=== PATIENT | male | born 1980 | race Caucasian/White ===

== ENCOUNTER 2017-05-23 05:42 | Emergency (ER) | payer OTHER ==
[~2017-05-23] VITALS: Ht 185.4 cm; Wt 95.3 kg
[~2017-05-23 05:42] MED LIST: KEFLEX250 MG/5 M PO; LASIX 40 MG TAB40 M1 PO; NOHOMEMEDICATIONS; ORAPRED15 MG/5 ML PO; PROMETHAZINE/C118 ML PO; ROXICET 5-325 OR5 ML PO
[2017-05-23 07:09] VITALS: BP 132/69
== END 2017-05-23 07:10 ==
LOC: M.ERS 05:42
DX: S63.501A Unspecified sprain of right wrist, initial encounter (principal); S40.011A Contusion of right shoulder, initial encounter; S00.83XA Contusion of other part of head, initial encounter; I10 Essential (primary) hypertension; F17.210 Nicotine dependence, cigarettes, uncomplicated; Y04.2XXA Assault by strike against or bumped into by another person, initial encounter